=== PATIENT | female | born 1940 | race African-American/Black ===

== ENCOUNTER 2019-05-01 18:35 | Emergency (ER) | payer OTHER ==
[~2019-05-01] VITALS: Ht 165.1 cm; Wt 85.3 kg
[2019-05-01 19:30] LABS: Basophils # (auto) 0.1 uL; Basophils % (auto) 1.7 % (0.0-2.0); Eosinophils # (auto) 0.3 uL; Eosinophils % (auto) 4.5 % (0.0-7.0); Hematocrit 37.9 % (36.0-46.0); Hemoglobin 12.9 g/dL (12.2-16.2); Mean Corpuscular Hemoglobin 30.6 pg (28.0-32.0); Mean Corpuscular Hgb Conc. 33.9 g/dL (32.0-36.0); Mean Corpuscular Volume 90.1 fL (80.0-100.0); Monocytes # (auto) 0.5 uL; Monocytes % (auto) 6.9 % (0.0-12.0); Neutrophils # (auto) 3.2 uL; Neutrophils % (auto) 44.9 % (37.0-80.0); Nucleated Red Blood Cells % 0.1 %; Platelet Count (auto) 216 10^3/uL (140-450); Red Blood Cells 4.21 10^6/uL (4.0-5.20); White Blood Cell 7.1 10^3/uL (4.4-10.8)
[2019-05-01 19:42] LABS: Anion Gap 6 (5-15); Blood Urea Nitrogen 21 mg/dL (7-18); Calcium 8.4 mg/dL (8.5-10.1); Carbon Dioxide 28 mmol/L (21-32); Chloride 107 mmol/L (98-107); Glucose 204 mg/dL (74-106); Potassium 3.3 mmol/L (3.5-5.1); Sodium 141 mmol/L (136-145)
[2019-05-01 19:50] LABS: Alanine Aminotransferase 14 U/L (13-56); Albumin 3.8 g/dL (3.4-5.0); Alkaline Phosphatase 138 U/L (45-117); Aspartate Aminotransferase 14 U/L (15-37); Bilirubin, Total 0.3 mg/dL (0.2-1.0); GFR African American 69 mL/min; GFR Non-African American 57 mL/min; Total Protein 7.5 g/dL (6.4-8.2)
[2019-05-01] MEDS ORDERED: LEVOFLOXACIN 500MG 100 ML IV ONE (20:30)
[2019-05-01] MEDS ORDERED: POTASSIUM CHL 20 Meq TABLET PO ONE (20:45)
[2019-05-01] MEDS ORDERED: IOHEXOL 350 MG/ML 100ML IJ ONE (21:02)
[2019-05-02 05:32] VITALS: BP 182/83
== END 2019-05-02 05:50 | disposition short-term general hospital (02) ==
LOC: ER 18:35 → EDBD 18:35 → ER 05-02 05:50
DX: J18.1 Lobar pneumonia, unspecified organism (principal); E11.9 Type 2 diabetes mellitus without complications; I10 Essential (primary) hypertension
CPT/HCPCS: 36415; 71045; 71275; 80053; 83735; 83880; 84484; 85025; 93005; 96365; 99285; J1956; Q9967

== ENCOUNTER 2025-02-21 11:12 | Emergency (ER) | payer OTHER ==
[~2025-02-21] VITALS: Ht 165.1 cm; Wt 81.1 kg
--- NOTE | 2025-02-21 11:54 | ED.PDOC ---
History of Present Illness HPI Comments 84-year-old female with PMHx PE, ID, DM2, HTN presents with a chief complaint of flank pain. Patient states that her pain is localized to her left flank, nonradiating, nonexertional and rates her pain a 9/10. Patient mentions that she initially went to [facility] but was referred to the ER due to her history of blood clots. Chief Complaint: Flank Pain Time Seen by MD: 11:42 Reviewed Notes: Medications, Allergies Allergies: Coded Allergies: Pravastatin (Verified Allergy, Severe, RASH, 05/01/19) Information Source: Patient Mode of Arrival: Ambulatory Severity: Moderate Timing: Days Duration: Since onset Prehospital treatment: None Past Medical History PAST MEDICAL HISTORY: DM, HTN, ID, PE Surgical History: Hysterectomy, Pacemaker, Tonsillectomy 21 DEALER History: No Pertinent 21 DEALER History Family History Family History: Family hx of heart von, Family hx of HTN Social History Smoker: Quit Greater Than 1 Year Alcohol: Denies ETOH Use Drugs: Denies Drug Use Lives In: Home Constitutional: denies: chills, diaphoresis, fatigue, fever, malaise, sweats, weakness, others EENTM: denies: blurred vision, double vision, ear bleeding, ear discharge, ear drainage, ear pain, ear ringing, eye pain, eye redness, hearing loss, mouth pain, mouth swelling, nasal discharge, nose bleeding, nose congestion, nose pain, photophobia, tearing, throat pain, throat swelling, voice changes, others Respiratory: denies: cough, hemoptysis, orthopnea, SOB at rest, shortness of breath, SOB with excertion, stridor, wheezing, others Cardiovascular: denies: chest pain, dizzy spells, diaphoresis, Dyspnea on exertion, edema, irregular heart beat, left arm pain, lightheadedness, palpitations, PND, syncope, others Gastrointestinal: denies: abdomen distended, abdominal pain, blood streaked bowels, constipated, diarrhea, dysphagia, difficulty swallowing, hematemesis, melena, nausea, poor appetite, poor fluid intake, rectal bleeding, rectal pain, vomiting, others Genitourinary: reports: flank pain; denies: abnormal vagina bleeding, burning, dyspareunia, dysuria, frequency, hematuria, incontinence, pain, , vagina discharge, urgency, others Neurological: denies: dizziness, fainting, headache, left sided numbness, left sided weakness, numbness, paresthesia, pre-existing deficit, right sided numbness, right sided weakness, seizure, speech problems, tingling, tremors, weakness, others Musculoskeletal: denies: back pain, gout, joint pain, joint swelling, muscle pain, muscle stiffness, neck pain, others Integumetry: denies: bruises, change in color, change in hair/nails, dryness, laceration, lesions, lumps, rash, wounds, others Allergic/Immunocompromised: denies: Difficulty Healing, Frequent Infections, Hives, Itching, others Hematologic/Lymphatic: denies: anemia, blood clots, easy bleeding, easy bru ising, swollen glands, others Endocrine: denies: excessive hunger, excessive sweating, excessive thirst, e xcessive urination, flushing, intolerance to cold, intolerance to heat, unexplained weight gain, unexplained weight loss, others Psychiatric: denies: anxiety, bipolar disorder, depression, hopeless, panic disorder, schizophrenia, sleepless, suicidal, others All Other Systems: Reviewed and Negative Physical Exam General Appearance: Moderate Distress, Normal HEENT: Normal ENT Inspection, Pharynx Normal, TMs Normal Neck: Full Range of Motion, Non-Tender, Normal, Normal Inspection Respiratory: Chest Non-Tender, Lungs Clear, No Accessory Muscle Use, No Respiratory Distress, Normal Breath Sounds Cardiovascular: No Edema, No JVD, No Murmur, No Gallop, Normal Peripheral Pulses, Regular Rate/Rhythm Breast Exam: Deferred Gastrointestinal: No Organomegaly, Non Tender, No Pulsatile Mass, Normal Bowel Sounds, Soft Genitalia: Deferred Pelvic: Deferred Rectal: Deferred Extremities: No calf tenderness, Normal capillary refill, Normal inspection, Normal range of motion, Non-tender, No pedal edema Musculoskeletal : Apperance: Normal Neurologic: Alert, cut off saw operator metal II-XII nml as Tested, No Motor Deficits, Normal Affect, Normal Mood, No Sensory Deficits Cerebellar Function: NOT DONE Reflexes: NOT DONE Skin: Dry, Normal Color, Warm Peripheral Pulses: 3+ Radial (R), 3+ Radial (L) Lymphatic: No Adenopathy Was a procedure done? Was a procedure done?: No Differential Dx Considerations may include: Kidney stone Electrolyte imbalance X-Ray, Labs, Meds, VS Vital Signs Date Time Temp Pulse Resp B/P (MAP) Pulse Ox O2 Delivery O2 Flow Rate FiO2 02/21/25 13:16 67 17 144/64 02/21/25 13:08 98.7 67 17 144/64 (90) 95 98.7 02/21/25 13:08 67 17 95 Room Air 02/21/25 11:14 97.5 77 16 153/74 97 97.5 Lab Test 02/21/25 12:42 02/21/25 11:54 Range/Units White Blood Count 9.3 4.4-10.8 10^3/uL Red Blood Count 4.73 4.0-5.20 10^6/uL Hemoglobin 14.5 12.2-16.2 g/dL Hematocrit 45.4 36.0-46.0 % Mean Corpuscular Volume 96.0 80.0-100.0 fL Mean Corpuscular Hemoglobin 30.7 28.0-32.0 pg Mean Corpuscular Hemoglobin Concent 32.0 32.0-36.0 g/dL Red Cell Distribution Width 14.3 11.8-14.3 % Platelet Count 196 140-450 10^3/uL Mean Platelet Volume 7.7 6.9-10.8 fL Neutrophils (%) (Auto) 69.2 37.0-80.0 % Lymphocytes (%) (Auto) 18.7 10.0-50.0 % Monocytes (%) (Auto) 8.9 0.0-12.0 % Eosinophils (%) (Auto) 2.8 0.0-7.0 % Basophils (%) (Auto) 0.4 0.0-2.0 % Neutrophils # (Auto) 6.5 1.6-8.6 10 ^3/uL Lymphocytes # (Auto) 1.7 0.4-5.4 10 ^3/uL Monocytes # (Auto) 0.8 0-1.3 10 ^3/uL Eosinophils # (Auto) 0.3 0-0.8 10 ^3/uL Basophils # (Auto) 0 0-0.2 10 ^3/uL Nucleated Red Blood Cells 0.1 % Sodium Level 141 136-145 mmol/L Potassium Level 4.7 3.5-5.1 mmol/L Chloride Level 108 H 98-107 mmol/L Carbon Dioxide Level 20 20-31 mmol/L Anion Gap 13 5-15 Blood Urea Nitrogen 19 9-23 mg/dL Creatinine 1.12 H 0.550-1.02 mg/dL Glomerular Filtration Rate Calc 48 >90 mL/min BUN/Creatinine Ratio 17.0 10.0-20.0 Serum Glucose 111 H 74-106 mg/dL Calcium Level 9.4 8.7-10.4 mg/dL Urine Color Pending Urine Clarity Pending Urine pH Pending Urine Specific [place] Pending Urine Protein Pending Urine Ketones Pending Urine Blood Pending Urine Nitrite Pending Urine Bilirubin Pending Urine Urobilinogen Pending Urine Leukocyte Esterase Pending Urine RBC Pending Urine Microscopic WBC Pending Urine Squamous Epithelial Cells Pending Urine Bacteria Pending Urine Glucose Pending Current Medications Medications (Trade) Dose Ordered Sig/Tj Route Start Time Stop Time Status Last Admin Morphine Sulfate 4 mg ONCE ONCE IV 02/21/25 12:00 02/21/25 12:01 DC 02/21/25 13:16 Ondansetron HCl (Zofran) 4 mg ONCE ONCE IV 02/21/25 12:00 02/21/25 12:01 DC 02/21/25 13:15 Patient alert. Complaining of flank pain. Vitals stable. Answering questions. Possible kidney stone. Establish intravenous access. Was given morphine. Was given Zofran. Explained to the patient. Continue monitoring. [facility] ER visit [phone]. Time of 1ST Reevaluation: 12:12 Reevaluation 1ST: Unchanged Patient Education/Counseling: Diagnosis, Treatment, Need For Follow Up Family Education/Counseling: Diagnosis, Treatment, Need For Follow Up SEPSIS Sepsis Screen Date sepsis recognized/suspect: Feb 21, 2025 Time Sepsis recognized/suspect: 1116 Recent Procedure: No On Antibiotic Therapy: No Respiratory Rate >20: No Heart Rate >90: No Temp<36 C (96.8 F) or >38.3 C: No SBP <90 or MAP <65 mmHG: No New Acute Mental Status Change: No Is the patient on CPAP, BIPAP,: No Physician Orders Urinalysis (02/21/25 11:54) Ct Ab Pel Wo Con-No Oral Or Iv (02/21/25 11:54) Vital Signs Date Time Temp Pulse Resp B/P (MAP) Pulse Ox O2 Delivery O2 Flow Rate FiO2 02/21/25 13:16 67 17 144/64 02/21/25 13:08 98.7 67 17 144/64 (90) 95 98.7 02/21/25 13:08 67 17 95 Room Air 02/21/25 11:14 97.5 77 16 153/74 97 97.5 Laboratory Tests Test 02/21/25 12:42 White Blood Count 9.3 10^3/uL (4.4-10.8) Medications Medications Dose Ordered Sig/Tj Route Start Time Stop Time Status Last Admin Dose Admin Morphine Sulfate 4 mg ONCE ONCE IV 02/21/25 12:00 02/21/25 12:01 DC 02/21/25 13:16 Ondansetron HCl 4 mg ONCE ONCE IV 02/21/25 12:00 02/21/25 12:01 DC 02/21/25 13:15 Departure 1 Departure Time of Disposition: 11:56 Impression: Primary Impression: Acute abdominal pain Disposition: ADMITTED INPATIENT Admit to: Med Surg Condition: Guarded Critical Care Note Critical Care Time?: No Stability Stability form required: No Heart Score Heart Score: Heart Score Response (Comments) Value History N/A 0 EKG N/A 0 Age N/A 0 Risk Factors N/A 0 Troponin N/A 0 Total 0 I personally scribed for MARCELO LAUREANO MD ([email or web address]) on 02/21/25 at 11:54. Electronically submitted by Pranay Cristina ([email or web address]). MARCELO LAUREANO MD Feb 21, 2025 11:54
--- NOTE | 2025-02-21 12:48 | DVH ---
Indication: stone Technique: CT axial images of the abdomen and pelvis are obtained without contrast. Coronal and sagit umesh reformats were obtained. Radiation Dose Information: CTDI volume is 17.3 mGy. Dose-length product is 843 mGy*cm Comparison: None FINDINGS: There is limited interpretation of the abdomen and pelvis without administration of intravenous contr ast. The lung bases demonstrate no pleural effusion. Coronary artery calcification disease. Adrenal glands, spleen and pancreas unremarkable in shape. Liver unremarkable in shape. Cholelithias is/sludge. Severely distended gallbladder. No hydronephrosis. Small hiatal hernia. Stomach partially distended. Small bowel loops are demonstrating fecal like co ntents. Colonic diverticular disease. Moderate volume stool in the colon. No secondary signs for appendicitis . Abdominal aortic atherosclerotic disease. Bladder is partially distended. No free pelvic fluid. No in guinal lymphadenopathy. Extensive iliac bone sclerosis. Moderate to advanced thoracolumbar degenerative disc disease. IMPRESSION: Limited evaluation without contrast. No hydronephrosis/ nephrolithiasis. Colonic diverticular disease. Moderate volume stool in the colon. Severely distended gallbladder with cholelithiasis/ sludge. Recommend HIDA scan to exclude cholecyst itis. Fecal like contents within the small bowel which can be seen with ileus, hypomotility, bowel obstruct ion. Diffuse iliac bone sclerosis with differential considerations including paget's disease, osteoblastic metastatic disease, metabolic disorders, myeloproliferative disorders, other malignant etiologies. Correlate clinically. Atherosclerotic, coronary artery calcification disease.
[2025-02-21 12:55] LABS: Hematocrit 45.4 % (36.0-46.0); Hemoglobin 14.5 g/dL (12.2-16.2); Mean Corpuscular Hemoglobin 30.7 pg (28.0-32.0); Mean Corpuscular Volume 96.0 fL (80.0-100.0); Nucleated Red Blood Cells % 0.1 %
[2025-02-21 13:14] LABS: Potassium 4.7 mmol/L (3.5-5.1); Sodium 141 mmol/L (136-145)
[2025-02-21 13:15] LABS: Anion Gap 13 (5-15)
[2025-02-21] MEDS: ONDANSETRON HCL 4 MG/2 ML VIAL IV ONE (13:15)
[2025-02-21 13:16] LABS: Calcium 9.4 mg/dL (8.7-10.4)
[2025-02-21] MEDS: MORPHINE SULFATE 4 MG/ML SYR/VIAL IV ONE (13:16)
[2025-02-21 13:21] LABS: BUN/Creatinine Ratio 17.0 (10.0-20.0); Blood Urea Nitrogen 19 mg/dL (9-23)
[2025-02-21 13:29] LABS: Carbon Dioxide 20 mmol/L (20-31); Chloride 108 mmol/L (98-107); Glucose 111 mg/dL (74-106)
[2025-02-21] MEDS: SODIUM CHLORIDE 0.9% 1,000 ML IV ONE (13:47)
[2025-02-21 14:26] LABS: Urine Protein, UAD Negative (Negative)
[2025-02-21 16:14] VITALS: BP 142/69; PULSE 60; RESP 12; TEMP 97.6; O2SAT 95
== END 2025-02-21 16:31 | disposition short-term general hospital (02) ==
LOC: ER 11:16
DX: R10.9 Unspecified abdominal pain (principal); E11.9 Type 2 diabetes mellitus without complications; I10 Essential (primary) hypertension; I25.10 Atherosclerotic heart disease of native coronary artery without angina pectoris; Z90.710 Acquired absence of both cervix and uterus; Z95.0 Presence of cardiac pacemaker
CPT/HCPCS: 36415; 74176; 80048; 81001; 85025; 96374; 96375; 99285; J2270; J2405